=== PATIENT | female | born 1970 | race Native Hawaiian/Other Pacific Islander ===

== ENCOUNTER 2021-12-27 16:55 | Emergency (ER) | payer MEDICAID ==
[~2021-12-27] VITALS: Ht 154.9 cm; Wt 76.4 kg
[2021-12-27 17:33] VITALS: BP 112/73
[2021-12-27] MEDS ORDERED: LEVO500T90 PO (18:38)
[2021-12-27] MEDS ORDERED: levoFLOXACIN 750MG TABLET PO ONE (18:40)
--- NOTE | 2021-12-27 18:50 | NUR ---
po med given
== END 2021-12-27 18:51 | disposition home or self-care (01) ==
LOC: ER 16:56
DX: R05.9 Cough, unspecified (principal); R50.9 Fever, unspecified; R06.02 Shortness of breath; H10.021 Other mucopurulent conjunctivitis, right eye; H53.8 Other visual disturbances; Z79.2 Long term (current) use of antibiotics
CPT/HCPCS: 99283

== ENCOUNTER 2025-02-24 12:04 | Outpatient (CLI) | payer MEDICAID ==
--- NOTE | 2025-02-24 14:09 | RADIOLOGY REPORT ---
EXAM: MR MRI HEAD INDICATION: MIGRAINE, UNSP, NOT INTRACTABLE, WITHOUT STATUS MIGRAINOSUS TECHNIQUE: Multiplanar, multisequence imaging of the brain without contrast. COMPARISON: None FINDINGS: [PARENCHYMA]: No acute infarct or hemorrhage. No mass effect or herniation. No abnormal susceptibilit y weighted artifact. [VENTRICLES]: No hydrocephalus. [EXTRA-AXIAL SPACES]: No extra-axial fluid collections. [FLOW VOIDS]: The flow voids are intact. [EXTRA-CRANIAL STRUCTURES]: The bony structures are intact. Visualized portions of the paranasal sinu ses and mastoid air cells are essentially clear. IMPRESSION: 1. No MR evidence of an acute intracranial abnormality.
== END 2025-02-24 23:59 | disposition home or self-care (01) ==
LOC: MRI 12:04
PROVIDERS: ATTEND Family Medicine
DX: G43.909 Migraine, unspecified, not intractable, without status migrainosus (principal); M54.2 Cervicalgia
CPT/HCPCS: 70551